=== PATIENT | male | born 1955 | race Caucasian/White ===

== ENCOUNTER 2017-05-21 07:23 | Inpatient (IN) ==
[2017-05-21] MEDS ORDERED: PANTOPRAZOLE 40 MG VIAL IV STA (07:44)
[2017-05-21] MEDS ORDERED: ONDANSETRON 4 MG/2 ML VIAL IV STA (07:44)
[2017-05-21] MEDS ORDERED: SODIUM CHLORIDE 0.9% 1,000 ML IV STA (07:44)
[2017-05-21 08:06] LABS: Basophils # 0.1 10*3/uL (0.0-0.2); Basophils % 0.9 % (0.0-0.8); NRBC # 0.02 10*3/uL; Platelet Count 85 T/CUMM (130-400); Red Cell Distribution Width 14.6 % (9.3-17.3)
[2017-05-21 08:11] LABS: Eosinophils # 0.1 10*3/uL (0.0-0.87); Eosinophils % 1.1 % (0.00-10.9); Hematocrit 23.6 VOL% (42.0-52.0); Hemoglobin 8.1 GM/DL (14.0-18.0); Immature Granulocytes % 0.9 %; Immature Granulocytes Absolute 0.08 #; Lymphocytes # 1.1 10*3/uL (1.4-4.0); Lymphocytes % 11.5 % (21.2-54.2); Mean Corpuscular HGB Conc 34.3 GM/DL (32-36); Mean Corpuscular Hemoglobin 39 PG (27-34); Mean Corpuscular Volume 113.5 FL (87-102); Mean Platelet Volume 11.2 FL (9.6-12.0); Monocytes # 0.6 10*3/uL (0.11-0.8); Monocytes % 6.8 % (1.7-12.7); Neutrophils # 7.4 10*3/uL (1.4-7.4); Neutrophils % 78.8 % (38.7-73.9); Red Blood Count 2.08 MC/CUMM (3.8-5.5); White Blood Count 9.3 T/CUMM (4-12)
[2017-05-21 08:37] LABS: Calcium 8.4 MG/DL (8.5-10.1); Osmolality,Calculated 281.5 MOS/KG (273-304); Potassium 4.1 MMOL/L (3.5-5.1); Total Protein 6.3 G/DL (6.4-8.3)
[2017-05-21 08:53] LABS: INR 1.2; PT Patient Result 12.5 SECS
[2017-05-21] MEDS ORDERED: SODIUM CHLORIDE 0.9% 1,000 ML IV PRN (08:54)
[2017-05-21] MEDS ORDERED: PANTOPRAZOLE 40 MG VIAL IV ONE (09:20)
[2017-05-21] MEDS ORDERED: ONDANSETRON 4 MG/2 ML VIAL ONE (09:20)
[2017-05-21] MEDS ORDERED: ACETAMINOPHEN 325 MG TABLET PO PRN (09:41)
[2017-05-21] MEDS ORDERED: ZALEPLON 5 MG CAPSULE PO PRN (09:41)
[2017-05-21] MEDS ORDERED: ONDANSETRON 4 MG/2 ML VIAL IV PRN (09:41)
[2017-05-21] MEDS: SODIUM CHLORIDE 0.9% 1,000 ML IV SCH ×4 (10:17→23:52)
[2017-05-21] MEDS: methylPREDNISolone SOD SUC 40 MG/1 ML VIAL IV SCH (10:17)
[2017-05-21 10:32] LABS: Magnesium 1.6 MG/DL (1.8-2.4); Thyroid Stimulating Hormone 6.55 uIU/ml (0.358-3.74)
[2017-05-21 10:43] LABS: Hypochromasia 1+; Platelet Estimate Decreased
[2017-05-21 10:45] LABS: Hematocrit 13.8 VOL% (42.0-52.0)
[2017-05-21 10:48] LABS: Hemoglobin 4.7 GM/DL (14.0-18.0)
[2017-05-21 13:30] LABS: % Iron Saturation 26.4 % (18-50)
[2017-05-21] MEDS ORDERED: PROPOFOL 200 MG/20 ML VIAL IV ONE (13:34)
[2017-05-21] MEDS ORDERED: FOLIC ACID 5 MG/1 ML VIAL IV SCH (14:30)
[2017-05-21] MEDS: THIAMINE 200 MG/2 ML VIAL IV SCH (16:44)
[2017-05-21] MEDS: FOLIC ACID INJ 1 MG in SYRINGE 1 EACH IV SCH (17:01)
[2017-05-21] MEDS: PANTOPRAZOLE 40 MG VIAL IV SCH (20:13)
[2017-05-21 21:04] LABS: Hematocrit 28.4 VOL% (42.0-52.0)
[2017-05-21 21:07] LABS: Hemoglobin 9.9 GM/DL (14.0-18.0)
[2017-05-21 22:26] LABS: AFP Tumor 4.2 NG/ML (0-8); Hepatitis A Ab IgM Quant 0.04 Index; Hepatitis A Ab IgM Result Negative (Negative); Hepatitis B Core IgM Quant 0.11 Index; Hepatitis B Core IgM Result Negative (Negative); Hepatitis B Surface Ag Quant < 0.10 Index; Hepatitis B Surface Ag Result Negative (Negative); Hepatitis C Virus Ab Quant 0.08 Index; Hepatitis C Virus Ab Result Negative (Negative)
[2017-05-22 06:19] LABS: Albumin 2.9 G/DL (3.4-5.0); Calcium 8.4 MG/DL (8.5-10.1); Osmolality,Calculated 277.5 MOS/KG (273-304); Potassium 3.9 MMOL/L (3.5-5.1); Total Protein 6.3 G/DL (6.4-8.3)
[2017-05-22 07:28] LABS: Basophils % 0.5 % (0.0-0.8); Eosinophils % 0.3 % (0.00-10.9); Hematocrit 27.9 VOL% (42.0-52.0); Hemoglobin 9.6 GM/DL (14.0-18.0); Immature Granulocytes % 0.8 %; Immature Granulocytes Absolute 0.05 #; Lymphocytes % 14.8 % (21.2-54.2); Mean Corpuscular HGB Conc 34.4 GM/DL (32-36); Mean Corpuscular Hemoglobin 34 PG (27-34); Mean Corpuscular Volume 98.6 FL (87-102); Mean Platelet Volume 9.8 FL (9.6-12.0); Monocytes # 0.6 10*3/uL (0.11-0.8); NRBC # 0.03 10*3/uL; Neutrophils # 4.9 10*3/uL (1.4-7.4); Neutrophils % 74.6 % (38.7-73.9); Platelet Count 50 T/CUMM (130-400); Red Blood Count 2.83 MC/CUMM (3.8-5.5); Red Cell Distribution Width 20.7 % (9.3-17.3); White Blood Count 6.6 T/CUMM (4-12)
[2017-05-22] MEDS ORDERED: INFLUENZA VIRUS VACCINE 0.5 ML SYRINGE IM ONE (09:00)
[2017-05-22] MEDS: PANTOPRAZOLE 40 MG VIAL IV SCH (09:00)
[2017-05-22] MEDS: THIAMINE 200 MG/2 ML VIAL IV SCH (09:06)
[2017-05-22] MEDS: methylPREDNISolone SOD SUC 40 MG/1 ML VIAL IV SCH (09:25)
[2017-05-22 09:30] LABS: Platelet Estimate Decreased
[2017-05-22 09:31] LABS: Anisocytosis Slight; Macrocytosis 2+
[2017-05-22] MEDS: SODIUM CHLORIDE 0.9% 1,000 ML IV SCH (09:34)
[2017-05-22] MEDS: FOLIC ACID INJ 1 MG in SYRINGE 1 EACH IV SCH (10:17)
[2017-05-22] MEDS: POTASSIUM CHLORIDE 10 MEQ TABLET PO SCH (14:53)
[2017-05-22] MEDS: FUROSEMIDE 20 MG/2 ML VIAL IV SCH ×2 (14:54→17:43)
[2017-05-22] MEDS: FAMOTIDINE 20 MG/2 ML VIAL IV SCH (14:54)
[2017-05-23] MEDS: FAMOTIDINE 20 MG/2 ML VIAL IV SCH (01:31)
[2017-05-23 03:25] LABS: Basophils % 0.3 % (0.0-0.8); Eosinophils % 0.9 % (0.00-10.9); Hematocrit 26.4 VOL% (42.0-52.0); Hemoglobin 9.2 GM/DL (14.0-18.0); Immature Granulocytes % 0.3 %; Immature Granulocytes Absolute 0.01 #; Lymphocytes % 29.1 % (21.2-54.2); Mean Corpuscular HGB Conc 34.8 GM/DL (32-36); Mean Corpuscular Hemoglobin 34 PG (27-34); Mean Corpuscular Volume 98.1 FL (87-102); Mean Platelet Volume 10.8 FL (9.6-12.0); Monocytes # 0.4 10*3/uL (0.11-0.8); Monocytes % 11.1 % (1.7-12.7); Neutrophils % 58.3 % (38.7-73.9); Red Blood Count 2.69 MC/CUMM (3.8-5.5); White Blood Count 3.5 T/CUMM (4-12)
[2017-05-23 03:29] LABS: Platelet Count 51 T/CUMM (130-400)
[2017-05-23] MEDS ORDERED: FUROSEMIDE 20 MG/2 ML VIAL IV SCH (08:00)
[2017-05-23] MEDS: methylPREDNISolone SOD SUC 40 MG/1 ML VIAL IV SCH ×2 (08:27→10:03)
[2017-05-23] MEDS ORDERED: FUROSEMIDE 20 MG/2 ML VIAL IV PRN (08:27)
[2017-05-23] MEDS: POTASSIUM CHLORIDE 10 MEQ TABLET PO SCH (08:27)
[2017-05-23] MEDS ORDERED: SODIUM CHLORIDE 0.9% 1,000 ML IV PRN ×2 (08:27→08:43)
[2017-05-23] MEDS: THIAMINE 200 MG/2 ML VIAL IV SCH (08:28)
[2017-05-23] MEDS: FOLIC ACID INJ 1 MG in SYRINGE 1 EACH IV SCH (08:28)
[2017-05-23] MEDS: PANTOPRAZOLE 40 MG TABLET PO SCH (08:47)
[2017-05-23] MEDS: PROPRANOLOL 10 MG TABLET PO SCH ×3 (10:56→20:39)
[2017-05-24 06:46] LABS: Basophils # 0.1 10*3/uL (0.0-0.2); Basophils % 1.1 % (0.0-0.8); Eosinophils # 0.2 10*3/uL (0.0-0.87); Eosinophils % 3.2 % (0.00-10.9); Hematocrit 34.5 VOL% (42.0-52.0); Hemoglobin 11.7 GM/DL (14.0-18.0); Immature Granulocytes % 0.3 %; Immature Granulocytes Absolute 0.02 #; Lymphocytes # 2.1 10*3/uL (1.4-4.0); Lymphocytes % 32.5 % (21.2-54.2); Mean Corpuscular HGB Conc 33.9 GM/DL (32-36); Mean Corpuscular Hemoglobin 33 PG (27-34); Mean Corpuscular Volume 97.7 FL (87-102); Monocytes # 0.5 10*3/uL (0.11-0.8); Monocytes % 7.3 % (1.7-12.7); Neutrophils # 3.5 10*3/uL (1.4-7.4); Neutrophils % 55.6 % (38.7-73.9); Platelet Count 84 T/CUMM (130-400); Red Blood Count 3.53 MC/CUMM (3.8-5.5); White Blood Count 6.3 T/CUMM (4-12)
[2017-05-24 07:06] LABS: Hypochromasia 1+; Macrocytosis 1+; Platelet Estimate Decreased
[2017-05-24 07:43] LABS: INR 1.1; PT Patient Result 11.1 SECS
[2017-05-24] MEDS ORDERED: DIAZEPAM 5 MG TABLET PO ONE (08:47)
[2017-05-24] MEDS: FUROSEMIDE 20 MG/2 ML VIAL IV SCH (09:16)
[2017-05-24] MEDS: FOLIC ACID 1 MG TABLET PO SCH ×2 (10:56→17:07)
[2017-05-24] MEDS: THIAMINE 100 MG TABLET PO SCH ×2 (10:56→17:06)
[2017-05-24] MEDS: POTASSIUM CHLORIDE 10 MEQ TABLET PO SCH ×2 (10:56→17:06)
[2017-05-24] MEDS: predniSONE 10 MG TABLET PO SCH ×2 (10:56→17:06)
[2017-05-24] MEDS: PANTOPRAZOLE 40 MG TABLET PO SCH ×2 (10:56→17:06)
[2017-05-24] MEDS: PROPRANOLOL 10 MG TABLET PO SCH ×3 (12:17→21:39)
[2017-05-25 06:57] LABS: Basophils # 0.1 10*3/uL (0.0-0.2); Basophils % 0.6 % (0.0-0.8); Eosinophils # 0.1 10*3/uL (0.0-0.87); Eosinophils % 1.1 % (0.00-10.9); Hematocrit 33.7 VOL% (42.0-52.0); Hemoglobin 11.6 GM/DL (14.0-18.0); Immature Granulocytes % 0.5 %; Immature Granulocytes Absolute 0.06 #; Lymphocytes # 1.4 10*3/uL (1.4-4.0); Lymphocytes % 12.6 % (21.2-54.2); Mean Corpuscular HGB Conc 34.4 GM/DL (32-36); Mean Corpuscular Hemoglobin 34 PG (27-34); Mean Corpuscular Volume 97.7 FL (87-102); Mean Platelet Volume 11.1 FL (9.6-12.0); Monocytes # 0.8 10*3/uL (0.11-0.8); Monocytes % 7.1 % (1.7-12.7); Neutrophils # 8.6 10*3/uL (1.4-7.4); Neutrophils % 78.1 % (38.7-73.9); Red Blood Count 3.45 MC/CUMM (3.8-5.5); Red Cell Distribution Width 19.4 % (9.3-17.3)
[2017-05-25 07:00] LABS: Platelet Count 95 T/CUMM (130-400)
[2017-05-25 07:38] LABS: Macrocytosis 2+; Platelet Estimate Decreased
[2017-05-25] MEDS: FUROSEMIDE 20 MG/2 ML VIAL IV SCH (08:44)
[2017-05-25] MEDS: PROPRANOLOL 10 MG TABLET PO SCH (08:45)
[2017-05-25] MEDS: PANTOPRAZOLE 40 MG TABLET PO SCH (08:45)
[2017-05-25] MEDS: THIAMINE 100 MG TABLET PO SCH (08:45)
[2017-05-25] MEDS: POTASSIUM CHLORIDE 10 MEQ TABLET PO SCH (08:45)
[2017-05-25] MEDS: predniSONE 10 MG TABLET PO SCH (08:45)
[2017-05-25] MEDS: FOLIC ACID 1 MG TABLET PO SCH (08:45)
[2017-05-25 09:15] VITALS: BP 130/81
== END 2017-05-25 12:24 | disposition home or self-care (01) | DRG 432 ==
LOC: N.ED 07:23 → N.EDINP 09:04 → SUATTDRO 09:04 → N.CC 09:49 → N.5E 05-22 11:00
PROVIDERS: ADMIT Internal Medicine; ATTEND Internal Medicine
PROC: EGDWEBL (ICD-10-PCS; 2017-05-21 12:00)

== ENCOUNTER 2017-10-11 20:03 | Inpatient (IN) ==
[2017-10-11 20:53] LABS: Basophils # 0.1 10*3/uL (0.0-0.2); Basophils % 0.5 % (0.0-0.8); Eosinophils # 0.6 10*3/uL (0.0-0.87); Eosinophils % 6.7 % (0.00-10.9); Hemoglobin 6.6 GM/DL (14.0-18.0); Immature Granulocytes % 0.6 %; Immature Granulocytes Absolute 0.06 #; Lymphocytes # 1.3 10*3/uL (1.4-4.0); Lymphocytes % 14.4 % (21.2-54.2); Mean Corpuscular HGB Conc 34.7 GM/DL (32-36); Mean Corpuscular Hemoglobin 39 PG (27-34); Mean Corpuscular Volume 111.8 FL (87-102); Mean Platelet Volume 11.8 FL (9.6-12.0); Monocytes # 0.9 10*3/uL (0.11-0.8); Monocytes % 9.7 % (1.7-12.7); Neutrophils # 6.3 10*3/uL (1.4-7.4); Neutrophils % 68.1 % (38.7-73.9); Platelet Count 91 T/CUMM (130-400); Red Cell Distribution Width 16.5 % (9.3-17.3); White Blood Count 9.3 T/CUMM (4-12)
[2017-10-11] MEDS ORDERED: OCTREOTIDE 100 MCG/ML SYRINGE IV STA (21:01)
[2017-10-11] MEDS ORDERED: PANTOPRAZOLE 40 MG VIAL IV STA (21:01)
[2017-10-11] MEDS ORDERED: SODIUM CHLORIDE 0.9% 500 ML IV STA (21:01)
[2017-10-11] MEDS ORDERED: ONDANSETRON 4 MG/2 ML VIAL IV STA (21:01)
[2017-10-11 21:13] LABS: Partial Thromboplastin Time 45.7 SECS (0-40)
[2017-10-11 21:16] LABS: INR 8.8
[2017-10-11 21:23] LABS: Anisocytosis 1+; Band Neutrophils 6 % (0-10); Eosinophils 5 % (0-10); Hypochromasia 1+; Lymphocytes 13 % (20-55); Platelet Estimate Decreased; Segmented Neutrophils 71 % (50-85); Tear Drop Cells Few; Total Cells Counted 100
[2017-10-11 21:25] LABS: Albumin 2.7 G/DL (3.4-5.0); Bilirubin,Total 0.6 MG/DL (0.2-1.0); Calcium 7.8 MG/DL (8.5-10.1); Osmolality,Calculated 291.1 MOS/KG (273-304); Potassium 3.9 MMOL/L (3.5-5.1)
[2017-10-11] MEDS ORDERED: ONDANSETRON 4 MG/2 ML VIAL ONE (21:25)
[2017-10-11] MEDS ORDERED: PANTOPRAZOLE 40 MG VIAL IV ONE (21:25)
[2017-10-11] MEDS ORDERED: OCTREOTIDE 100 MCG/ML SYRINGE ONE (21:26)
[2017-10-11 21:54] LABS: Ammonia 49 UMOL/L (11-32)
[2017-10-11] MEDS ORDERED: PHYTONADIONE 10 MG/1 ML AMP SUBCUT STA (22:13)
[2017-10-11] MEDS ORDERED: SODIUM CHLORIDE 0.9% 1,000 ML IV PRN (22:14)
[2017-10-11 22:19] LABS: Troponin I Only < 0.015 NG/ML (0.00-0.045)
[2017-10-11] MEDS ORDERED: PHYTONADIONE 10 MG/1 ML AMP ONE (22:23)
[2017-10-11] MEDS ORDERED: PHYTONADIONE 10 MG/1 ML AMP IV STA (23:50)
[2017-10-12] MEDS ORDERED: ONDANSETRON 4 MG/2 ML VIAL IV PRN (00:32)
[2017-10-12] MEDS: OCTREOTIDE 500 MCG in SODIUM CHLORIDE 0.9% 100 ML IV SCH ×2 (01:19→12:59)
[2017-10-12] MEDS: PANTOPRAZOLE INJ 200 MG in SODIUM CHLORIDE 0.9% 250 ML IV SCH (04:15)
[2017-10-12 05:32] LABS: Potassium 4.2 MMOL/L (3.5-5.1)
[2017-10-12 05:34] LABS: Eosinophils # 0.4 10*3/uL (0.0-0.87); Eosinophils % 8.7 % (0.00-10.9); Hematocrit 22.7 VOL% (42.0-52.0); Immature Granulocytes % 2.2 %; Immature Granulocytes Absolute 0.09 #; Lymphocytes # 1.1 10*3/uL (1.4-4.0); Lymphocytes % 26.2 % (21.2-54.2); Mean Corpuscular HGB Conc 35.2 GM/DL (32-36); Mean Corpuscular Hemoglobin 36 PG (27-34); Mean Corpuscular Volume 102.7 FL (87-102); Mean Platelet Volume 12.3 FL (9.6-12.0); Monocytes # 0.5 10*3/uL (0.11-0.8); Monocytes % 12.6 % (1.7-12.7); Neutrophils % 49.3 % (38.7-73.9); Platelet Count 64 T/CUMM (130-400); Red Blood Count 2.21 MC/CUMM (3.8-5.5); Red Cell Distribution Width 18.8 % (9.3-17.3); White Blood Count 4.1 T/CUMM (4-12)
[2017-10-12 05:56] LABS: Giant Platelets Few; Hypochromasia 1+; Macrocytosis Slight; Ovalocytes Slight; Platelet Estimate Decreased
[2017-10-12 08:47] LABS: INR 2.3
[2017-10-12 08:53] LABS: PT Patient Result 23.9 SECS
[2017-10-12] MEDS ORDERED: SODIUM CHLORIDE 0.9% 1,000 ML IV PRN (10:36)
[2017-10-12 19:56] LABS: Hematocrit 29.9 VOL% (42.0-52.0); Hemoglobin 10.7 GM/DL (14.0-18.0)
[2017-10-13] MEDS: OCTREOTIDE 500 MCG in SODIUM CHLORIDE 0.9% 100 ML IV SCH (00:50)
[2017-10-13 04:12] LABS: Basophils # 0.1 10*3/uL (0.0-0.2); Basophils % 1.3 % (0.0-0.8); Eosinophils # 0.5 10*3/uL (0.0-0.87); Eosinophils % 11.6 % (0.00-10.9); Hematocrit 28.4 VOL% (42.0-52.0); Hemoglobin 9.9 GM/DL (14.0-18.0); Immature Granulocytes % 0.4 %; Immature Granulocytes Absolute 0.02 #; Lymphocytes % 20.9 % (21.2-54.2); Mean Corpuscular HGB Conc 34.9 GM/DL (32-36); Mean Corpuscular Hemoglobin 35 PG (27-34); Mean Corpuscular Volume 100.4 FL (87-102); Mean Platelet Volume 11.4 FL (9.6-12.0); Monocytes # 0.5 10*3/uL (0.11-0.8); Monocytes % 10.5 % (1.7-12.7); Neutrophils # 2.6 10*3/uL (1.4-7.4); Neutrophils % 55.3 % (38.7-73.9); Platelet Count 57 T/CUMM (130-400); Red Blood Count 2.83 MC/CUMM (3.8-5.5); Red Cell Distribution Width 21.7 % (9.3-17.3); White Blood Count 4.7 T/CUMM (4-12)
[2017-10-13 04:16] LABS: INR 1.5; PT Patient Result 15.3 SECS
[2017-10-13 04:36] LABS: Bilirubin,Total 1.9 MG/DL (0.2-1.0); Calcium 8.5 MG/DL (8.5-10.1); Potassium 3.9 MMOL/L (3.5-5.1); Total Protein 6.5 G/DL (6.4-8.3)
[2017-10-13 04:42] LABS: Band Neutrophils 5 % (0-10); Eosinophils 14 % (0-10); Lymphocytes 20 % (20-55); Segmented Neutrophils 54 % (50-85); Total Cells Counted 100
[2017-10-13 04:43] LABS: Hypochromasia 1+; Macrocytosis 1+; Ovalocytes Slight
[2017-10-13 04:44] LABS: Platelet Estimate Decreased
[2017-10-13] MEDS: PANTOPRAZOLE INJ 200 MG in SODIUM CHLORIDE 0.9% 250 ML IV SCH (05:20)
[2017-10-13] MEDS ORDERED: PANTOPRAZOLE 40 MG TABLET PO SCH (09:00)
[2017-10-13] MEDS ORDERED: WARFARIN 2.5 MG TABLET PO ONE (09:47)
[2017-10-13] MEDS ORDERED: PROPRANOLOL 10 MG TABLET PO SCH (15:00)
[2017-10-13 15:05] VITALS: BP 127/73
[2017-10-13] MEDS ORDERED: HYDROXYCHLOROQUINE 200 MG TABLET PO SCH (21:00)
[2017-10-14] MEDS ORDERED: predniSONE 5 MG TABLET PO SCH (09:00)
[2017-10-14] MEDS ORDERED: PANTOPRAZOLE 40 MG TABLET PO SCH (09:00)
[2017-10-14] MEDS ORDERED: BENAZEPRIL 10 MG TABLET PO SCH (09:00)
[2017-10-14] MEDS ORDERED: MULTIVITAMIN (CENTRUM) TABLET PO SCH (09:00)
== END 2017-10-13 15:50 | disposition home or self-care (01) | DRG 813 ==
LOC: N.ED 20:03 → N.EDINP 23:38 → N.CC 10-12 00:08
PROVIDERS: ADMIT Family Medicine; ATTEND Family Medicine

== ENCOUNTER 2017-11-21 17:30 | Inpatient (IN) ==
[2017-11-21] MEDS ORDERED: ONDANSETRON 4 MG/2 ML VIAL IV STA (18:09)
[2017-11-21] MEDS ORDERED: SODIUM CHLORIDE 0.9% 1,000 ML IV STA (18:09)
[2017-11-21 18:29] LABS: Basophils # 0.1 10*3/uL (0.0-0.2); Basophils % 0.8 % (0.0-0.8); Eosinophils # 0.6 10*3/uL (0.0-0.87); Hematocrit 22.5 VOL% (42.0-52.0); Hemoglobin 7.5 GM/DL (14.0-18.0); Immature Granulocytes % 1.2 %; Immature Granulocytes Absolute 0.19 #; Lymphocytes # 1.8 10*3/uL (1.4-4.0); Lymphocytes % 11.3 % (21.2-54.2); Mean Corpuscular HGB Conc 33.3 GM/DL (32-36); Mean Corpuscular Hemoglobin 35 PG (27-34); Mean Corpuscular Volume 104.2 FL (87-102); Monocytes # 1.1 10*3/uL (0.11-0.8); Monocytes % 6.7 % (1.7-12.7); NRBC # 0.03 10*3/uL; Neutrophils # 11.9 10*3/uL (1.4-7.4); Platelet Count 189 T/CUMM (130-400); Red Blood Count 2.16 MC/CUMM (3.8-5.5); Red Cell Distribution Width 19.3 % (9.3-17.3); White Blood Count 15.6 T/CUMM (4-12)
[2017-11-21] MEDS ORDERED: SODIUM CHLORIDE 0.9% 1,000 ML IV PRN ×3 (18:33→22:28)
[2017-11-21 18:39] LABS: Partial Thromboplastin Time 28.9 SECS (0-40)
[2017-11-21 18:44] LABS: INR 2.5
[2017-11-21 18:52] LABS: PT Patient Result 25.3 SECS
[2017-11-21 18:54] LABS: Ammonia 58 UMOL/L (11-32)
[2017-11-21 19:01] LABS: Alanine Aminotransferase 19 U/L (16-61); Alkaline Phosphatase 74 U/L (45-117); Aspartate Amino Transferase 13 U/L (0-37); Blood Urea Nitrogen 39 MG/DL (7-18); Calcium 8.2 MG/DL (8.5-10.1); Glucose 164 MG/DL (74-106); Osmolality,Calculated 291.4 MOS/KG (273-304); Potassium 4.7 MMOL/L (3.5-5.1); Sodium 140 MMOL/L (136-145); Total Protein 6.6 G/DL (6.4-8.3); Troponin I Only < 0.015 NG/ML (0.00-0.045)
[2017-11-21] MEDS ORDERED: ONDANSETRON 4 MG/2 ML VIAL IV PRN (22:28)
[2017-11-21] MEDS ORDERED: PROMETHAZINE 25 MG/1 ML VIAL IM PRN (22:28)
[2017-11-21] MEDS ORDERED: MORPHINE 4 MG/1 ML VIAL IV PRN (22:28)
[2017-11-21] MEDS ORDERED: OCTREOTIDE 100 MCG/ML SYRINGE IV ONE (23:00)
[2017-11-21] MEDS ORDERED: PHYTONADIONE 10 MG/1 ML AMP IV ONE (23:00)
[2017-11-21] MEDS: PANTOPRAZOLE 40 MG VIAL IV SCH (23:04)
[2017-11-21] MEDS: SODIUM CHLORIDE 0.9% 1,000 ML IV SCH (23:05)
[2017-11-22] MEDS: OCTREOTIDE 500 MCG in SODIUM CHLORIDE 0.9% 100 ML IV SCH ×3 (00:05→20:21)
[2017-11-22 06:13] LABS: Hematocrit 27.3 VOL% (42.0-52.0); Hemoglobin 9.4 GM/DL (14.0-18.0)
[2017-11-22] MEDS: SODIUM CHLORIDE 0.9% 1,000 ML IV SCH ×2 (09:14→17:32)
[2017-11-22] MEDS: PANTOPRAZOLE 40 MG VIAL IV SCH ×2 (09:15→20:21)
[2017-11-22 09:55] LABS: INR 1.5; PT Patient Result 15.2 SECS
[2017-11-22] MEDS ORDERED: PHYTONADIONE 5 MG/5 ML ORAL.SYR PO ONE (09:56)
[2017-11-22] MEDS ORDERED: SODIUM CHLORIDE 0.9% 1,000 ML IV PRN (09:56)
[2017-11-22] MEDS: methylPREDNISolone SOD SUC 40 MG/1 ML VIAL IV SCH ×2 (09:56→21:30)
[2017-11-22 12:00] LABS: Hemoglobin 9.2 GM/DL (14.0-18.0)
[2017-11-22 17:56] LABS: Hematocrit 24.7 VOL% (42.0-52.0); Hemoglobin 8.5 GM/DL (14.0-18.0)
[2017-11-23] MEDS: SODIUM CHLORIDE 0.9% 1,000 ML IV SCH ×2 (02:47→21:50)
[2017-11-23 03:22] LABS: Hematocrit 24.6 VOL% (42.0-52.0); Hemoglobin 8.5 GM/DL (14.0-18.0)
[2017-11-23 03:25] LABS: Basophils % 0.3 % (0.0-0.8); Hematocrit 24.9 VOL% (42.0-52.0); Hemoglobin 8.5 GM/DL (14.0-18.0); Immature Granulocytes % 2.1 %; Immature Granulocytes Absolute 0.07 #; Lymphocytes # 0.4 10*3/uL (1.4-4.0); Lymphocytes % 12.6 % (21.2-54.2); Mean Corpuscular HGB Conc 34.1 GM/DL (32-36); Mean Corpuscular Hemoglobin 33 PG (27-34); Mean Corpuscular Volume 97.3 FL (87-102); Mean Platelet Volume 10.7 FL (9.6-12.0); Monocytes # 0.1 10*3/uL (0.11-0.8); Monocytes % 4.1 % (1.7-12.7); Neutrophils # 2.8 10*3/uL (1.4-7.4); Neutrophils % 80.9 % (38.7-73.9); Platelet Count 75 T/CUMM (130-400); Red Blood Count 2.56 MC/CUMM (3.8-5.5); White Blood Count 3.4 T/CUMM (4-12)
[2017-11-23 03:30] LABS: INR 1.1
[2017-11-23 03:51] LABS: Calcium 8.1 MG/DL (8.5-10.1); Osmolality,Calculated 290.1 MOS/KG (273-304); Potassium 4.3 MMOL/L (3.5-5.1)
[2017-11-23 03:55] LABS: Macrocytosis 2+; Platelet Estimate Decreased
[2017-11-23] MEDS: OCTREOTIDE 500 MCG in SODIUM CHLORIDE 0.9% 100 ML IV SCH ×2 (07:40→17:13)
[2017-11-23 07:58] LABS: Hematocrit 27.7 VOL% (42.0-52.0); Hemoglobin 9.2 GM/DL (14.0-18.0)
[2017-11-23] MEDS: PANTOPRAZOLE 40 MG VIAL IV SCH ×2 (11:17→22:06)
[2017-11-23] MEDS: methylPREDNISolone SOD SUC 40 MG/1 ML VIAL IV SCH ×2 (11:19→22:09)
[2017-11-23] MEDS ORDERED: LIDOCAINE 1% 5 ML VIAL ONE (12:56)
[2017-11-23] MEDS ORDERED: PROPOFOL 200 MG/20 ML VIAL IV ONE (12:56)
[2017-11-24] MEDS: OCTREOTIDE 500 MCG in SODIUM CHLORIDE 0.9% 100 ML IV SCH ×2 (05:57→16:30)
[2017-11-24 06:31] LABS: Basophils % 0.3 % (0.0-0.8); Eosinophils % 0.3 % (0.00-10.9); Hematocrit 24.4 VOL% (42.0-52.0); Hemoglobin 8.4 GM/DL (14.0-18.0); Immature Granulocytes % 1.6 %; Immature Granulocytes Absolute 0.06 #; Lymphocytes # 0.5 10*3/uL (1.4-4.0); Mean Corpuscular HGB Conc 34.4 GM/DL (32-36); Mean Corpuscular Hemoglobin 33 PG (27-34); Mean Corpuscular Volume 96.1 FL (87-102); Mean Platelet Volume 10.6 FL (9.6-12.0); Monocytes # 0.2 10*3/uL (0.11-0.8); Neutrophils # 3.1 10*3/uL (1.4-7.4); Neutrophils % 81.8 % (38.7-73.9); Platelet Count 76 T/CUMM (130-400); Red Blood Count 2.54 MC/CUMM (3.8-5.5); Red Cell Distribution Width 19.3 % (9.3-17.3); White Blood Count 3.8 T/CUMM (4-12)
[2017-11-24 07:08] LABS: Band Neutrophils 1 % (0-10); Eosinophils 1 % (0-10); Hypochromasia 1+; Lymphocytes 10 % (20-55); Ovalocytes Slight; Platelet Estimate Decreased; Segmented Neutrophils 84 % (50-85); Total Cells Counted 100
[2017-11-24] MEDS: SODIUM CHLORIDE 0.9% 1,000 ML IV SCH ×4 (07:56→16:06)
[2017-11-24 08:07] LABS: INR 1.2; PT Patient Result 12.1 SECS
[2017-11-24] MEDS: PANTOPRAZOLE 40 MG VIAL IV SCH ×2 (09:07→21:46)
[2017-11-24] MEDS: methylPREDNISolone SOD SUC 40 MG/1 ML VIAL IV SCH ×2 (09:11→21:49)
[2017-11-24] MEDS ORDERED: FUROSEMIDE 20 MG/2 ML VIAL IV PRN (21:32)
[2017-11-24] MEDS ORDERED: SODIUM CHLORIDE 0.9% 1,000 ML IV PRN (21:32)
[2017-11-25] MEDS ORDERED: FUROSEMIDE 20 MG/2 ML VIAL IV PRN (04:15)
[2017-11-25] MEDS ORDERED: PANTOPRAZOLE 40 MG TABLET PO SCH (07:00)
[2017-11-25 07:02] LABS: INR 1.2; PT Patient Result 12.7 SECS
[2017-11-25 07:15] LABS: Albumin 3.1 G/DL (3.4-5.0); Bilirubin,Total 1.5 MG/DL (0.2-1.0); Calcium 8.6 MG/DL (8.5-10.1); Osmolality,Calculated 277.7 MOS/KG (273-304); Potassium 3.7 MMOL/L (3.5-5.1); Total Protein 7.1 G/DL (6.4-8.3)
[2017-11-25] MEDS ORDERED: PROPRANOLOL 20 MG TABLET PO SCH (09:00)
[2017-11-25] MEDS: methylPREDNISolone SOD SUC 40 MG/1 ML VIAL IV SCH (09:32)
[2017-11-25] MEDS: SODIUM CHLORIDE 0.9% 1,000 ML IV SCH ×2 (09:32→10:44)
[2017-11-25 09:57] LABS: Basophils % 0.2 % (0.0-0.8); Hematocrit 31.5 VOL% (42.0-52.0); Immature Granulocytes % 1.3 %; Immature Granulocytes Absolute 0.08 #; Lymphocytes % 15.8 % (21.2-54.2); Mean Corpuscular Hemoglobin 32 PG (27-34); Mean Corpuscular Volume 92.9 FL (87-102); Mean Platelet Volume 10.9 FL (9.6-12.0); Monocytes # 0.7 10*3/uL (0.11-0.8); Monocytes % 11.8 % (1.7-12.7); Neutrophils # 4.3 10*3/uL (1.4-7.4); Neutrophils % 70.9 % (38.7-73.9); Red Cell Distribution Width 18.7 % (9.3-17.3)
[2017-11-25 09:59] LABS: Hemoglobin 10.7 GM/DL (14.0-18.0); Red Blood Count 3.39 MC/CUMM (3.8-5.5)
[2017-11-25 10:00] LABS: Platelet Count 77 T/CUMM (130-400)
[2017-11-25 10:15] LABS: Hypochromasia 1+; Ovalocytes Slight; Platelet Estimate Decreased
[2017-11-25 10:16] LABS: Macrocytosis Slight
[2017-11-25 12:43] VITALS: BP 132/79
== END 2017-11-25 12:32 | disposition home or self-care (01) | DRG 368 ==
LOC: N.ED 17:30 → SUATTDRO 20:12 → N.EDINP 20:12 → N.3E 22:06
PROVIDERS: ADMIT Internal Medicine Infectious Disease; ATTEND Internal Medicine Cardiovascular Disease
PROC: EGDWEBL (ICD-10-PCS; 2017-11-23 08:00)

== ENCOUNTER 2017-11-28 06:38 | Inpatient (IN) ==
[2017-11-28] MEDS ORDERED: PANTOPRAZOLE 40 MG VIAL IV STA (07:28)
[2017-11-28] MEDS ORDERED: ONDANSETRON 4 MG/2 ML VIAL IV STA (07:28)
[2017-11-28] MEDS ORDERED: SODIUM CHLORIDE 0.9% 1,000 ML IV STA (07:28)
[2017-11-28 07:39] LABS: Basophils # 0.1 10*3/uL (0.0-0.2); Basophils % 0.5 % (0.0-0.8); Eosinophils % 0.2 % (0.00-10.9); Hemoglobin 10.9 GM/DL (14.0-18.0); Immature Granulocytes % 0.8 %; Lymphocytes # 0.7 10*3/uL (1.4-4.0); Lymphocytes % 5.4 % (21.2-54.2); Mean Corpuscular HGB Conc 34.1 GM/DL (32-36); Mean Corpuscular Hemoglobin 32 PG (27-34); Mean Corpuscular Volume 94.7 FL (87-102); Mean Platelet Volume 11.9 FL (9.6-12.0); Monocytes # 1.3 10*3/uL (0.11-0.8); Monocytes % 10.4 % (1.7-12.7); Neutrophils # 10.5 10*3/uL (1.4-7.4); Neutrophils % 82.7 % (38.7-73.9); Red Blood Count 3.38 MC/CUMM (3.8-5.5); Red Cell Distribution Width 18.6 % (9.3-17.3); White Blood Count 12.7 T/CUMM (4-12)
[2017-11-28 07:40] LABS: Platelet Count 57 T/CUMM (130-400)
[2017-11-28 07:43] LABS: INR 1.4; PT Patient Result 14.2 SECS; Partial Thromboplastin Time 29.8 SECS (0-40)
[2017-11-28 07:50] LABS: Albumin 3.2 G/DL (3.4-5.0); Bilirubin,Total 2.5 MG/DL (0.2-1.0); Calcium 8.1 MG/DL (8.5-10.1); Osmolality,Calculated 269.2 MOS/KG (273-304); Potassium 3.5 MMOL/L (3.5-5.1); Total Protein 6.8 G/DL (6.4-8.3)
[2017-11-28 07:54] LABS: Troponin I Only 0.164 NG/ML (0.00-0.045)
[2017-11-28] MEDS ORDERED: SODIUM CHLORIDE 0.9% 500 ML IV STA (09:09)
[2017-11-28] MEDS ORDERED: cefTRIAXone 1,000 MG in SODIUM CHLORIDE 0.9% 100 ML IV STA (09:11)
[2017-11-28] MEDS ORDERED: ENOXAPARIN 80 MG/0.8 ML SYRINGE SUBCUT STA (09:16)
[2017-11-28] MEDS ORDERED: ASPIRIN 325 MG TABLET PO STA (09:16)
[2017-11-28] MEDS ORDERED: cefTRIAXone 1,000 MG VIAL ONE (09:21)
[2017-11-28 09:23] LABS: Hypochromasia 2+
[2017-11-28] MEDS ORDERED: cefTRIAXone 1,000 MG in SYRINGE 1 EACH IV STA (09:23)
[2017-11-28] MEDS ORDERED: ACETAMINOPHEN 500 MG TABLET PO STA (09:57)
[2017-11-28] MEDS ORDERED: ACETAMINOPHEN 500 MG TABLET ONE (09:58)
[2017-11-28] MEDS ORDERED: SODIUM CHLORIDE 0.9% 1,000 ML IV SCH (11:30)
[2017-11-28 12:13] LABS: Lactic Acid 2.2 MMOL/L (0.4-2.0)
[2017-11-28] MEDS: OCTREOTIDE 500 MCG in SODIUM CHLORIDE 0.9% 100 ML IV SCH (13:11)
[2017-11-28 15:35] LABS: Hematocrit 26.2 VOL% (42.0-52.0); Hemoglobin 8.8 GM/DL (14.0-18.0)
[2017-11-28] MEDS ORDERED: SODIUM CHLORIDE 0.9% 1,000 ML IV PRN ×2 (15:41→15:44)
[2017-11-28] MEDS: ACETAMINOPHEN 325 MG TABLET PO PRN (18:09)
[2017-11-28] MEDS: ALBUTEROL/IPRATROPIUM 3 ML NEB RESP TX SCH ×2 (20:08)
[2017-11-28 20:52] LABS: Calcium 7.7 MG/DL (8.5-10.1); Potassium 3.9 MMOL/L (3.5-5.1)
[2017-11-28] MEDS: LEVOFLOXACIN INJ 750 MG in PREMIX 1 EACH IV SCH (21:46)
[2017-11-28] MEDS: HYDROXYCHLOROQUINE 200 MG TABLET PO SCH (21:49)
[2017-11-28] MEDS: PANTOPRAZOLE 40 MG VIAL IV SCH (21:49)
[2017-11-28] MEDS: PIPERACILLIN/TAZOBACTAM 3,375 MG in SODIUM CHLORIDE 0.9% 100 ML IV SCH (22:37)
[2017-11-28 23:27] LABS: Hematocrit 27.7 VOL% (42.0-52.0); Hemoglobin 9.4 GM/DL (14.0-18.0)
[2017-11-28] MEDS: MORPHINE 4 MG/1 ML VIAL IV PRN (23:56)
[2017-11-29] MEDS: ALBUTEROL/IPRATROPIUM 3 ML NEB RESP TX SCH ×3 (00:07→07:24)
[2017-11-29] MEDS: OCTREOTIDE 500 MCG in SODIUM CHLORIDE 0.9% 100 ML IV SCH ×3 (01:18→22:44)
[2017-11-29] MEDS ORDERED: ONDANSETRON 4 MG/2 ML VIAL ONE (03:16)
[2017-11-29] MEDS ORDERED: ONDANSETRON 4 MG/2 ML VIAL IV PRN (03:20)
[2017-11-29 03:25] LABS: ABG Base Excess -1.7 MMOL/L (-2.5-2.5); ABG HCO3 22.9 MMOL/L (20-26); ABG Oxygen Saturation 96.9 % (95-100); ABG PCO2 41.9 MM HG (35-48); ABG PO2 89.4 MM HG (80-95); ABG TCO2 21.5 MMOL/L (23-27)
[2017-11-29] MEDS ORDERED: FUROSEMIDE 40 MG/4 ML VIAL ONE (04:45)
[2017-11-29 04:49] LABS: Basophils # 0.1 10*3/uL (0.0-0.2); Basophils % 0.5 % (0.0-0.8); Eosinophils % 0.1 % (0.00-10.9); Hematocrit 30.1 VOL% (42.0-52.0); Hemoglobin 10.4 GM/DL (14.0-18.0); Immature Granulocytes % 1.4 %; Lymphocytes % 4.4 % (21.2-54.2); Mean Corpuscular HGB Conc 34.6 GM/DL (32-36); Mean Corpuscular Hemoglobin 32 PG (27-34); Mean Corpuscular Volume 92.3 FL (87-102); Mean Platelet Volume 12.1 FL (9.6-12.0); Monocytes # 2.8 10*3/uL (0.11-0.8); Monocytes % 12.4 % (1.7-12.7); NRBC # 0.03 10*3/uL; Neutrophils % 81.2 % (38.7-73.9); Red Blood Count 3.26 MC/CUMM (3.8-5.5); Red Cell Distribution Width 19.9 % (9.3-17.3); White Blood Count 22.1 T/CUMM (4-12)
[2017-11-29 04:53] LABS: Platelet Count 62 T/CUMM (130-400)
[2017-11-29] MEDS ORDERED: FUROSEMIDE 40 MG/4 ML VIAL IV ONE ×2 (05:00→10:19)
[2017-11-29] MEDS: LEVALBUTEROL 1.25 MG/3 ML NEB RESP TX SCH ×4 (05:01→19:22)
[2017-11-29 05:06] LABS: Amorphous Crystals,Urine Occasional /HPF (Few); Apearance,Urine CLEAR (Clear); Bacteria,Urine Occasional /HPF (Few); Bilirubin,Urine Negative (Negative); Blood, Urine Moderate mg/dL (Negative); Glucose,Urine (UA) Negative (Negative); Ketones,Urine 20 mg/dL (Negative); Mucus,Urine Occasional /LPF (Occasional); Nitrite,Urine Negative (Negative); Protein,Urine 30 MG/DL; RBC,Urine 13 /HPF (0-4); Squamous Epithelial Cell,Urine Occasional /HPF (0-10); Urine Color Yellow (Yellow); Urine Specific Gravity 1.026 (1.001-1.035); Urine Urobilinogen < 2.0 EU/DL (0.2-1.0); WBC,Urine 2 /HPF (0-6)
[2017-11-29] MEDS ORDERED: PROMETHAZINE 25 MG/1 ML VIAL IM PRN (05:06)
[2017-11-29 05:24] LABS: Hypochromasia 1+; Microcytosis 1+
[2017-11-29 05:25] LABS: Platelet Estimate Decreased
[2017-11-29 05:26] LABS: Troponin I Only 0.063 NG/ML (0.00-0.045)
[2017-11-29 05:35] LABS: Calcium 7.9 MG/DL (8.5-10.1); Potassium 4.2 MMOL/L (3.5-5.1)
[2017-11-29] MEDS: PIPERACILLIN/TAZOBACTAM 3,375 MG in SODIUM CHLORIDE 0.9% 100 ML IV SCH ×3 (05:59→22:16)
[2017-11-29 08:41] LABS: Hematocrit 29.8 VOL% (42.0-52.0); Hemoglobin 10.2 GM/DL (14.0-18.0)
[2017-11-29] MEDS: PANTOPRAZOLE 40 MG VIAL IV SCH ×2 (10:31→22:10)
[2017-11-29] MEDS: HYDROXYCHLOROQUINE 200 MG TABLET PO SCH ×2 (10:32→20:14)
[2017-11-29] MEDS: BENAZEPRIL 40 MG TABLET PO SCH (10:32)
[2017-11-29] MEDS: predniSONE 5 MG TABLET PO SCH (10:32)
[2017-11-29 13:07] LABS: Hematocrit 32.5 VOL% (42.0-52.0); Hemoglobin 11.3 GM/DL (14.0-18.0)
[2017-11-29] MEDS ORDERED: ALBUTEROL/IPRATROPIUM 3 ML NEB RESP TX PRN (13:38)
[2017-11-29] MEDS: FUROSEMIDE 40 MG/4 ML VIAL IV SCH (16:54)
[2017-11-29 19:30] LABS: Hematocrit 32.3 VOL% (42.0-52.0)
[2017-11-29] MEDS: MORPHINE 4 MG/1 ML VIAL IV PRN (19:54)
[2017-11-29] MEDS: LEVOFLOXACIN INJ 750 MG in PREMIX 1 EACH IV SCH (20:18)
[2017-11-29] MEDS: ACETAMINOPHEN 325 MG TABLET PO PRN (23:24)
[2017-11-30] MEDS: LEVALBUTEROL 1.25 MG/3 ML NEB RESP TX SCH ×4 (00:15→19:06)
[2017-11-30] MEDS: FUROSEMIDE 40 MG/4 ML VIAL IV SCH ×2 (00:25→10:17)
[2017-11-30] MEDS ORDERED: SODIUM CHLORIDE 0.9% 250 ML IV ONE (01:40)
[2017-11-30 02:24] LABS: Basophils % 0.2 % (0.0-0.8); Hematocrit 26.7 VOL% (42.0-52.0); Immature Granulocytes % 0.5 %; Immature Granulocytes Absolute 0.04 #; Lymphocytes # 0.6 10*3/uL (1.4-4.0); Lymphocytes % 6.6 % (21.2-54.2); Mean Corpuscular HGB Conc 33.7 GM/DL (32-36); Mean Corpuscular Hemoglobin 32 PG (27-34); Mean Corpuscular Volume 93.4 FL (87-102); Mean Platelet Volume 13.1 FL (9.6-12.0); Monocytes # 1.3 10*3/uL (0.11-0.8); Monocytes % 15.3 % (1.7-12.7); Neutrophils # 6.8 10*3/uL (1.4-7.4); Neutrophils % 77.4 % (38.7-73.9); Platelet Count 44 T/CUMM (130-400); Red Blood Count 2.86 MC/CUMM (3.8-5.5); Red Cell Distribution Width 19.6 % (9.3-17.3); White Blood Count 8.8 T/CUMM (4-12)
[2017-11-30 02:34] LABS: Calcium 7.7 MG/DL (8.5-10.1); Osmolality,Calculated 276.1 MOS/KG (273-304); Potassium 3.1 MMOL/L (3.5-5.1)
[2017-11-30 02:51] LABS: Anisocytosis 1+; Band Neutrophils 40 % (0-10); Lymphocytes 6 % (20-55); Poikilocytosis 1+; Polychromasia Slight; Segmented Neutrophils 46 % (50-85); Total Cells Counted 100
[2017-11-30 02:55] LABS: Tear Drop Cells 1+
[2017-11-30 02:56] LABS: Ovalocytes 1+
[2017-11-30] MEDS: PIPERACILLIN/TAZOBACTAM 3,375 MG in SODIUM CHLORIDE 0.9% 100 ML IV SCH ×3 (06:10→21:56)
[2017-11-30] MEDS ORDERED: SODIUM CHLORIDE 0.9% 1,000 ML IV PRN (06:27)
[2017-11-30] MEDS: OCTREOTIDE 500 MCG in SODIUM CHLORIDE 0.9% 100 ML IV SCH ×4 (07:07→19:38)
[2017-11-30] MEDS: POTASSIUM CHLORIDE RIDER 10 MEQ in PREMIX 1 EACH IV SCH ×4 (07:34→12:54)
[2017-11-30] MEDS: PANTOPRAZOLE 40 MG VIAL IV SCH ×2 (08:37→20:19)
[2017-11-30] MEDS: BENAZEPRIL 40 MG TABLET PO SCH (10:18)
[2017-11-30] MEDS: HYDROXYCHLOROQUINE 200 MG TABLET PO SCH ×2 (10:48→20:18)
[2017-11-30] MEDS: predniSONE 5 MG TABLET PO SCH (10:48)
[2017-11-30] MEDS: MULTIVITAMIN (CENTRUM) TABLET PO SCH (10:48)
[2017-11-30] MEDS: POTASSIUM CHLORIDE 20 MEQ/15 ML UDCUP PO SCH ×2 (10:48→20:18)
[2017-11-30] MEDS ORDERED: POTASSIUM CHLORIDE RIDER 100 ML IV ONE (12:49)
[2017-11-30 14:11] LABS: Double Stranded DNA Antibodies < 25.0 IU/ML
[2017-11-30 14:15] LABS: Anti SS-A Antibodies < 16 EU/ML; Anti SS-B Antibodies < 16 EU/ML
[2017-12-01] MEDS: OCTREOTIDE 500 MCG in SODIUM CHLORIDE 0.9% 100 ML IV SCH ×2 (00:16→05:38)
[2017-12-01] MEDS: LEVALBUTEROL 1.25 MG/3 ML NEB RESP TX SCH ×4 (00:24→19:58)
[2017-12-01] MEDS: PIPERACILLIN/TAZOBACTAM 3,375 MG in SODIUM CHLORIDE 0.9% 100 ML IV SCH ×3 (05:13→22:03)
[2017-12-01 05:18] LABS: Eosinophils # 0.1 10*3/uL (0.0-0.87); Eosinophils % 2.6 % (0.00-10.9); Hematocrit 26.3 VOL% (42.0-52.0); Hemoglobin 8.5 GM/DL (14.0-18.0); Immature Granulocytes % 0.8 %; Immature Granulocytes Absolute 0.03 #; Lymphocytes # 0.9 10*3/uL (1.4-4.0); Lymphocytes % 22.4 % (21.2-54.2); Mean Corpuscular HGB Conc 32.3 GM/DL (32-36); Mean Corpuscular Hemoglobin 31 PG (27-34); Mean Corpuscular Volume 94.9 FL (87-102); Mean Platelet Volume 12.6 FL (9.6-12.0); Monocytes # 0.8 10*3/uL (0.11-0.8); Monocytes % 19.5 % (1.7-12.7); Neutrophils # 2.1 10*3/uL (1.4-7.4); Neutrophils % 53.7 % (38.7-73.9); Red Blood Count 2.77 MC/CUMM (3.8-5.5); Red Cell Distribution Width 18.9 % (9.3-17.3); White Blood Count 3.9 T/CUMM (4-12)
[2017-12-01 05:29] LABS: Platelet Count 35 T/CUMM (130-400)
[2017-12-01 05:30] LABS: INR 1.4; PT Patient Result 14.2 SECS
[2017-12-01 05:51] LABS: Eosinophils 2 % (0-10); Lymphocytes 25 % (20-55); Platelet Estimate Decreased; Segmented Neutrophils 60 % (50-85); Total Cells Counted 100
[2017-12-01 05:52] LABS: Hypochromasia 1+; Microcytosis 1+; Tear Drop Cells Few
[2017-12-01 05:53] LABS: Target Cells Slight
[2017-12-01 06:02] LABS: Calcium 8.2 MG/DL (8.5-10.1); Osmolality,Calculated 280.5 MOS/KG (273-304); Potassium 3.7 MMOL/L (3.5-5.1)
[2017-12-01] MEDS ORDERED: SODIUM CHLORIDE 0.9% 1,000 ML IV PRN ×2 (06:46→10:27)
[2017-12-01] MEDS: BENAZEPRIL 40 MG TABLET PO SCH (09:13)
[2017-12-01] MEDS: PROPRANOLOL LA 80 MG CAPSULE PO SCH (09:13)
[2017-12-01] MEDS: PANTOPRAZOLE 40 MG TABLET PO SCH (09:14)
[2017-12-01] MEDS: HYDROXYCHLOROQUINE 200 MG TABLET PO SCH ×2 (09:14→20:45)
[2017-12-01] MEDS: POTASSIUM CHLORIDE 20 MEQ/15 ML UDCUP PO SCH ×2 (09:14→20:45)
[2017-12-01] MEDS: predniSONE 5 MG TABLET PO SCH (09:14)
[2017-12-01] MEDS ORDERED: LEVOFLOXACIN INJ 750 MG in PREMIX 1 EACH IV SCH (20:00)
[2017-12-01 20:19] LABS: Hematocrit 28.6 VOL% (42.0-52.0); Hemoglobin 9.1 GM/DL (14.0-18.0)
[2017-12-02] MEDS: LEVALBUTEROL 1.25 MG/3 ML NEB RESP TX SCH ×3 (00:32→13:56)
[2017-12-02] MEDS: PIPERACILLIN/TAZOBACTAM 3,375 MG in SODIUM CHLORIDE 0.9% 100 ML IV SCH ×2 (05:59→14:27)
[2017-12-02 06:00] LABS: INR 1.2; PT Patient Result 12.4 SECS
[2017-12-02 06:02] LABS: Basophils # 0.1 10*3/uL (0.0-0.2); Basophils % 1.5 % (0.0-0.8); Eosinophils # 0.2 10*3/uL (0.0-0.87); Eosinophils % 3.5 % (0.00-10.9); Hematocrit 31.3 VOL% (42.0-52.0); Hemoglobin 10.1 GM/DL (14.0-18.0); Immature Granulocytes % 0.7 %; Immature Granulocytes Absolute 0.03 #; Lymphocytes # 1.5 10*3/uL (1.4-4.0); Lymphocytes % 32.8 % (21.2-54.2); Mean Corpuscular HGB Conc 32.3 GM/DL (32-36); Mean Corpuscular Hemoglobin 31 PG (27-34); Mean Corpuscular Volume 97.2 FL (87-102); Mean Platelet Volume 12.4 FL (9.6-12.0); Monocytes # 0.6 10*3/uL (0.11-0.8); Monocytes % 12.4 % (1.7-12.7); Neutrophils # 2.3 10*3/uL (1.4-7.4); Neutrophils % 49.1 % (38.7-73.9); Red Blood Count 3.22 MC/CUMM (3.8-5.5); Red Cell Distribution Width 19.1 % (9.3-17.3); White Blood Count 4.6 T/CUMM (4-12)
[2017-12-02 06:10] LABS: Platelet Count 72 T/CUMM (130-400)
[2017-12-02 06:21] LABS: Calcium 8.9 MG/DL (8.5-10.1); Osmolality,Calculated 279.3 MOS/KG (273-304); Potassium 4.4 MMOL/L (3.5-5.1)
[2017-12-02 06:23] LABS: Band Neutrophils 21 % (0-10); Eosinophils 8 % (0-10); Lymphocytes 38 % (20-55); Segmented Neutrophils 25 % (50-85); Total Cells Counted 100
[2017-12-02 06:24] LABS: Anisocytosis 2+; Poikilocytosis 1+
[2017-12-02] MEDS: HYDROXYCHLOROQUINE 200 MG TABLET PO SCH (09:11)
[2017-12-02] MEDS: MULTIVITAMIN (CENTRUM) TABLET PO SCH (09:11)
[2017-12-02] MEDS: BENAZEPRIL 40 MG TABLET PO SCH (09:11)
[2017-12-02] MEDS: predniSONE 5 MG TABLET PO SCH (09:12)
[2017-12-02] MEDS: PANTOPRAZOLE 40 MG TABLET PO SCH (09:12)
[2017-12-02] MEDS: PROPRANOLOL LA 80 MG CAPSULE PO SCH (09:12)
[2017-12-02 14:09] VITALS: BP 104/64
== END 2017-12-02 14:29 | disposition home or self-care (01) | DRG 871 ==
LOC: N.ED 06:38 → N.EDINP 09:24 → SUATTDRO 09:24 → N.TELES 10:00 → N.ICU 17:29 → N.4E 12-01 22:58
PROVIDERS: ATTEND Internal Medicine

== ENCOUNTER 2018-08-14 15:22 | Inpatient (IN) ==
[2018-08-14] MEDS ORDERED: ONDANSETRON 4 MG/2 ML VIAL IV STA (15:47)
[2018-08-14] MEDS ORDERED: PANTOPRAZOLE INJ 80 MG in SODIUM CHLORIDE 0.9% 100 ML IV STA (15:47)
[2018-08-14] MEDS ORDERED: SODIUM CHLORIDE 0.9% 2,000 ML IV STA (15:47)
[2018-08-14 15:57] LABS: Basophils % 0.2 % (0.0-0.8); Eosinophils # 0.2 10*3/uL (0.0-0.87); Eosinophils % 1.6 % (0.00-10.9); Immature Granulocytes % 0.8 %; Immature Granulocytes Absolute 0.09 #; Lymphocytes # 1.7 10*3/uL (1.4-4.0); Lymphocytes % 14.8 % (21.2-54.2); Mean Corpuscular HGB Conc 31.8 GM/DL (32-36); Mean Corpuscular Hemoglobin 36 PG (27-34); Mean Corpuscular Volume 112.9 FL (87-102); Mean Platelet Volume 11.1 FL (9.6-12.0); Monocytes # 0.7 10*3/uL (0.11-0.8); Monocytes % 6.4 % (1.7-12.7); Neutrophils # 8.6 10*3/uL (1.4-7.4); Neutrophils % 76.2 % (38.7-73.9); Platelet Count 130 T/CUMM (130-400); Red Blood Count 1.39 MC/CUMM (3.8-5.5); Red Cell Distribution Width 16.5 % (9.3-17.3); White Blood Count 11.3 T/CUMM (4-12)
[2018-08-14] MEDS ORDERED: SODIUM CHLORIDE 0.9% 1,000 ML IV PRN ×3 (16:01→19:22)
[2018-08-14 16:02] LABS: Hematocrit 15.7 VOL% (42.0-52.0)
[2018-08-14] MEDS ORDERED: PANTOPRAZOLE 40 MG VIAL IV ONE (16:02)
[2018-08-14 16:14] LABS: INR 2.3
[2018-08-14 16:17] LABS: PT Patient Result 24.8 SECS
[2018-08-14 16:20] LABS: Albumin 2.6 G/DL (3.4-5.0); Bilirubin,Total 0.7 MG/DL (0.2-1.0); Calcium 8.3 MG/DL (8.5-10.1); Osmolality,Calculated 297.3 MOS/KG (273-304); Potassium 4.1 MMOL/L (3.5-5.1); Total Protein 5.6 G/DL (6.4-8.3)
[2018-08-14] MEDS ORDERED: PROTHROMBIN COMPLEX CONC 1,500 UNIT in IV BAG 1 EACH IV ONE (16:22)
[2018-08-14] MEDS ORDERED: ONDANSETRON 4 MG/2 ML VIAL IV PRN (16:51)
[2018-08-14] MEDS ORDERED: HYDROCORTISONE 100 MG VIAL IV STA (16:56)
[2018-08-14] MEDS ORDERED: PANTOPRAZOLE INJ 200 MG in SODIUM CHLORIDE 0.9% 250 ML IV SCH (17:00)
[2018-08-14 17:08] LABS: Hypochromasia 1+; Macrocytosis 1+; Platelet Estimate Adequate
[2018-08-14] MEDS ORDERED: GLUCAGON 1 MG VIAL IM PRN (17:09)
[2018-08-14] MEDS ORDERED: DEXTROSE 50% 25 GM/50 ML VIAL IV PRN (17:09)
[2018-08-14] MEDS: PANTOPRAZOLE INJ 200 MG in SODIUM CHLORIDE 0.9% 250 ML IV SCH (17:45)
[2018-08-14] MEDS: OCTREOTIDE 500 MCG in SODIUM CHLORIDE 0.9% 100 ML IV SCH (18:04)
[2018-08-14] MEDS ORDERED: PROPOFOL 200 MG/20 ML VIAL IV ONE (19:55)
[2018-08-14] MEDS ORDERED: PHENYLEPHRINE 1 MG/10 ML SYRINGE IV ONE (19:56)
[2018-08-14] MEDS ORDERED: SODIUM CHLORIDE 0.9% 250 ML IV ONE (19:56)
[2018-08-14] MEDS ORDERED: VECURONIUM 10 MG VIAL IV ONE (19:56)
[2018-08-14] MEDS ORDERED: HYDROCORTISONE 100 MG VIAL ONE (19:56)
[2018-08-14] MEDS ORDERED: MIDAZOLAM 2 MG/2 ML VIAL ONE (19:56)
[2018-08-14] MEDS ORDERED: SUCCINYLCHOLINE 200 MG/10 ML VIAL ONE (19:56)
[2018-08-14 20:27] LABS: Apearance,Urine CLEAR (Clear); Bilirubin,Urine Negative (Negative); Blood, Urine Negative (Negative); Glucose,Urine (UA) Negative (Negative); Hyaline Casts,Urine 3 /LPF (0-3); Ketones,Urine Negative (Negative); Nitrite,Urine Negative (Negative); Protein,Urine Negative; RBC,Urine <1 /HPF (0-4); Squamous Epithelial Cell,Urine Occasional /HPF (0-10); Urine Color Yellow (Yellow); Urine Specific Gravity 1.015 (1.001-1.035); Urine Urobilinogen < 2.0 EU/DL (0.2-1.0); WBC,Urine 1 /HPF (0-6)
[2018-08-14] MEDS: PROPOFOL 1,000 MG/100 ML BOTTLE IV SCH (20:38)
[2018-08-14 20:50] LABS: Allen Test Positive; Pt O2 Delivery Device Ventilator
[2018-08-14 20:51] LABS: ABG HCO3 22.7 MMOL/L (20-26); ABG Oxygen Saturation 98.1 % (95-100); ABG PH 7.378 (7.35-7.45); ABG TCO2 21.9 MMOL/L (23-27)
[2018-08-14] MEDS: SODIUM CHLORIDE 0.9% 1,000 ML IV SCH (21:25)
[2018-08-14] MEDS: CLINDAMYCIN INJ 600 MG in PREMIX 1 EACH IV SCH (21:25)
[2018-08-14] MEDS: HYDROCORTISONE 100 MG VIAL IV SCH (23:52)
[2018-08-14] MEDS: INSULIN REGULAR 100 UNIT/ML SUBCUT SCH (23:52)
[2018-08-15 02:42] LABS: Hematocrit 24.6 VOL% (42.0-52.0); Hemoglobin 8.6 GM/DL (14.0-18.0)
[2018-08-15] MEDS: SODIUM CHLORIDE 0.9% 1,000 ML IV SCH ×6 (03:15→22:01)
[2018-08-15] MEDS: PROPOFOL 1,000 MG/100 ML BOTTLE IV SCH ×6 (03:15→19:47)
[2018-08-15] MEDS: CIPROFLOXACIN INJ 400 MG in PREMIX 1 EACH IV SCH ×2 (03:16→14:24)
[2018-08-15 04:03] LABS: ABG Base Excess -2.8 MMOL/L (-2.5-2.5); ABG HCO3 21.9 MMOL/L (20-26); ABG Oxygen Saturation 86.1 % (95-100); ABG PCO2 36.9 MM HG (35-48); ABG PH 7.382 (7.35-7.45); ABG PO2 50.1 MM HG (80-95); ABG TCO2 20.3 MMOL/L (23-27); Pt O2 Delivery Device Ventilator
[2018-08-15] MEDS: OCTREOTIDE 500 MCG in SODIUM CHLORIDE 0.9% 100 ML IV SCH ×2 (04:22→14:24)
[2018-08-15 05:34] LABS: Basophils % 0.1 % (0.0-0.8); Hematocrit 24.4 VOL% (42.0-52.0); Hemoglobin 8.4 GM/DL (14.0-18.0); Immature Granulocytes % 0.9 %; Immature Granulocytes Absolute 0.11 #; Lymphocytes # 0.5 10*3/uL (1.4-4.0); Lymphocytes % 4.3 % (21.2-54.2); Mean Corpuscular HGB Conc 34.4 GM/DL (32-36); Mean Corpuscular Hemoglobin 33 PG (27-34); Mean Corpuscular Volume 96.4 FL (87-102); Mean Platelet Volume 11.9 FL (9.6-12.0); Monocytes # 1.1 10*3/uL (0.11-0.8); Monocytes % 9.6 % (1.7-12.7); Neutrophils # 10.1 10*3/uL (1.4-7.4); Neutrophils % 85.1 % (38.7-73.9); Red Blood Count 2.53 MC/CUMM (3.8-5.5); Red Cell Distribution Width 18.2 % (9.3-17.3); White Blood Count 11.8 T/CUMM (4-12)
[2018-08-15 05:44] LABS: Calcium 7.7 MG/DL (8.5-10.1); Potassium 4.2 MMOL/L (3.5-5.1)
[2018-08-15] MEDS: CLINDAMYCIN INJ 600 MG in PREMIX 1 EACH IV SCH ×3 (05:48→20:40)
[2018-08-15 05:50] LABS: Platelet Count 42 T/CUMM (130-400)
[2018-08-15 06:01] LABS: Band Neutrophils 1 % (0-10); Hypochromasia 1+; Lymphocytes 2 % (20-55); Ovalocytes Slight; Platelet Estimate Decreased; Segmented Neutrophils 91 % (50-85); Total Cells Counted 100
[2018-08-15 06:52] LABS: INR 1.5; PT Patient Result 16.7 SECS
[2018-08-15] MEDS: HYDROCORTISONE 100 MG VIAL IV SCH ×2 (07:10→15:19)
[2018-08-15] MEDS: INSULIN REGULAR 100 UNIT/ML SUBCUT SCH ×3 (07:10→18:07)
[2018-08-15] MEDS ORDERED: CALCIUM GLUCONATE 1,000 MG in SODIUM CHLORIDE 0.9% 100 ML IV ONE (10:30)
[2018-08-15 10:57] LABS: Hematocrit 24.1 VOL% (42.0-52.0); Hemoglobin 8.3 GM/DL (14.0-18.0)
[2018-08-15 13:45] LABS: ABG Base Excess -2.3 MMOL/L (-2.5-2.5); ABG HCO3 22.5 MMOL/L (20-26); ABG PCO2 32.3 MM HG (35-48); ABG PH 7.429 (7.35-7.45); ABG TCO2 19.9 MMOL/L (23-27); Pt O2 Delivery Device Ventilator
[2018-08-15 17:49] LABS: Hematocrit 23.7 VOL% (42.0-52.0); Hemoglobin 8.1 GM/DL (14.0-18.0)
[2018-08-15] MEDS: PANTOPRAZOLE INJ 200 MG in SODIUM CHLORIDE 0.9% 250 ML IV SCH ×2 (17:54→18:57)
[2018-08-15 22:44] LABS: Hematocrit 22.8 VOL% (42.0-52.0); Hemoglobin 7.8 GM/DL (14.0-18.0)
[2018-08-16] MEDS: PROPOFOL 1,000 MG/100 ML BOTTLE IV SCH ×7 (00:47→21:32)
[2018-08-16] MEDS: OCTREOTIDE 500 MCG in SODIUM CHLORIDE 0.9% 100 ML IV SCH ×5 (00:58→22:07)
[2018-08-16] MEDS: HYDROCORTISONE 100 MG VIAL IV SCH ×4 (00:59→23:57)
[2018-08-16] MEDS: INSULIN REGULAR 100 UNIT/ML SUBCUT SCH ×5 (01:01→23:49)
[2018-08-16] MEDS: CIPROFLOXACIN INJ 400 MG in PREMIX 1 EACH IV SCH ×2 (02:39→15:22)
[2018-08-16 04:38] LABS: Allen Test Positive; Pt O2 Delivery Device Ventilator
[2018-08-16 04:39] LABS: Basophils % 0.5 % (0.0-0.8); Eosinophils # 0.1 10*3/uL (0.0-0.87); Eosinophils % 1.5 % (0.00-10.9); Hematocrit 22.8 VOL% (42.0-52.0); Hemoglobin 7.6 GM/DL (14.0-18.0); Immature Granulocytes % 0.5 %; Immature Granulocytes Absolute 0.02 #; Lymphocytes # 0.7 10*3/uL (1.4-4.0); Lymphocytes % 16.1 % (21.2-54.2); Mean Corpuscular HGB Conc 33.3 GM/DL (32-36); Mean Corpuscular Hemoglobin 33 PG (27-34); Mean Corpuscular Volume 98.3 FL (87-102); Mean Platelet Volume 11.1 FL (9.6-12.0); Monocytes # 0.4 10*3/uL (0.11-0.8); Monocytes % 8.7 % (1.7-12.7); Neutrophils # 2.9 10*3/uL (1.4-7.4); Neutrophils % 72.7 % (38.7-73.9); Red Blood Count 2.32 MC/CUMM (3.8-5.5); Red Cell Distribution Width 19.2 % (9.3-17.3)
[2018-08-16 04:41] LABS: ABG Base Excess -3.3 MMOL/L (-2.5-2.5); ABG HCO3 21.6 MMOL/L (20-26); ABG Oxygen Saturation 99.9 % (95-100); ABG PCO2 36.2 MM HG (35-48); ABG PH 7.379 (7.35-7.45); ABG TCO2 19.9 MMOL/L (23-27)
[2018-08-16 04:43] LABS: Platelet Count 29 T/CUMM (130-400)
[2018-08-16] MEDS ORDERED: SODIUM CHLORIDE 0.9% 1,000 ML IV PRN ×5 (04:50→18:11)
[2018-08-16 04:51] LABS: INR 1.9
[2018-08-16 05:10] LABS: Band Neutrophils 1 % (0-10); Eosinophils 2 % (0-10); Lymphocytes 15 % (20-55); Platelet Estimate Decreased; Segmented Neutrophils 77 % (50-85); Total Cells Counted 100
[2018-08-16] MEDS: CLINDAMYCIN INJ 600 MG in PREMIX 1 EACH IV SCH ×3 (05:10→22:03)
[2018-08-16 05:11] LABS: Hypochromasia 1+; Microcytosis Slight; Ovalocytes Slight
[2018-08-16] MEDS ORDERED: PHYTONADIONE INJ 2.5 MG in SODIUM CHLORIDE 0.9% 25 ML IV ONE (07:30)
[2018-08-16] MEDS: SODIUM CHLORIDE 0.9% 1,000 ML IV SCH ×2 (10:23→16:00)
[2018-08-16] MEDS ORDERED: CALCIUM GLUCONATE 1,000 MG in SODIUM CHLORIDE 0.9% 100 ML IV ONE (11:00)
[2018-08-16] MEDS: PANTOPRAZOLE INJ 200 MG in SODIUM CHLORIDE 0.9% 250 ML IV SCH ×2 (16:46→20:31)
[2018-08-16 22:49] LABS: Hematocrit 26.6 VOL% (42.0-52.0)
[2018-08-17] MEDS: PROPOFOL 1,000 MG/100 ML BOTTLE IV SCH ×2 (02:03→06:10)
[2018-08-17] MEDS: CIPROFLOXACIN INJ 400 MG in PREMIX 1 EACH IV SCH ×2 (02:11→15:38)
[2018-08-17 03:03] LABS: ABG Base Excess -3.9 MMOL/L (-2.5-2.5); ABG HCO3 21.2 MMOL/L (20-26); ABG Oxygen Saturation 98.9 % (95-100); ABG PCO2 38.1 MM HG (35-48); ABG PH 7.354 (7.35-7.45); ABG TCO2 19.4 MMOL/L (23-27); Allen Test Positive; Pt O2 Delivery Device Ventilator
[2018-08-17] MEDS: SODIUM CHLORIDE 0.9% 1,000 ML IV SCH ×3 (03:31→12:31)
[2018-08-17 04:51] LABS: Basophils % 0.9 % (0.0-0.8); Eosinophils # 0.1 10*3/uL (0.0-0.87); Eosinophils % 1.5 % (0.00-10.9); Hematocrit 28.5 VOL% (42.0-52.0); Hemoglobin 9.4 GM/DL (14.0-18.0); Immature Granulocytes % 1.8 %; Immature Granulocytes Absolute 0.06 #; Lymphocytes # 0.5 10*3/uL (1.4-4.0); Lymphocytes % 16.2 % (21.2-54.2); Mean Corpuscular Hemoglobin 32 PG (27-34); Mean Corpuscular Volume 97.9 FL (87-102); Monocytes # 0.3 10*3/uL (0.11-0.8); Monocytes % 7.8 % (1.7-12.7); Neutrophils # 2.4 10*3/uL (1.4-7.4); Neutrophils % 71.8 % (38.7-73.9); Red Blood Count 2.91 MC/CUMM (3.8-5.5); Red Cell Distribution Width 18.2 % (9.3-17.3); White Blood Count 3.3 T/CUMM (4-12)
[2018-08-17 04:54] LABS: INR 1.4
[2018-08-17 05:00] LABS: Platelet Count 37 T/CUMM (130-400)
[2018-08-17] MEDS: CLINDAMYCIN INJ 600 MG in PREMIX 1 EACH IV SCH ×3 (05:09→22:44)
[2018-08-17] MEDS: OCTREOTIDE 500 MCG in SODIUM CHLORIDE 0.9% 100 ML IV SCH ×4 (05:10→22:47)
[2018-08-17] MEDS: INSULIN REGULAR 100 UNIT/ML SUBCUT SCH ×4 (05:11→20:25)
[2018-08-17 05:12] LABS: Albumin 2.7 G/DL (3.4-5.0); Bilirubin,Total 1.2 MG/DL (0.2-1.0); Calcium 7.9 MG/DL (8.5-10.1); Osmolality,Calculated 289.8 MOS/KG (273-304); Total Protein 6.4 G/DL (6.4-8.3)
[2018-08-17] MEDS: HYDROCORTISONE 100 MG VIAL IV SCH ×3 (06:13→22:43)
[2018-08-17 12:36] LABS: Hematocrit 33.7 VOL% (42.0-52.0); Hemoglobin 11.3 GM/DL (14.0-18.0)
[2018-08-17] MEDS: PANTOPRAZOLE INJ 200 MG in SODIUM CHLORIDE 0.9% 250 ML IV SCH ×2 (16:17→21:31)
[2018-08-17] MEDS: SODIUM CHLORIDE 0.45% 1,000 ML IV SCH (18:40)
[2018-08-18] MEDS: OCTREOTIDE 500 MCG in SODIUM CHLORIDE 0.9% 100 ML IV SCH ×3 (02:16→22:05)
[2018-08-18] MEDS: CIPROFLOXACIN INJ 400 MG in PREMIX 1 EACH IV SCH ×2 (02:31→14:28)
[2018-08-18] MEDS: SODIUM CHLORIDE 0.45% 1,000 ML IV SCH ×3 (03:20→22:22)
[2018-08-18 05:28] LABS: Hematocrit 31.8 VOL% (42.0-52.0); Hemoglobin 10.4 GM/DL (14.0-18.0)
[2018-08-18 05:36] LABS: INR 1.3; PT Patient Result 14.3 SECS
[2018-08-18] MEDS: CLINDAMYCIN INJ 600 MG in PREMIX 1 EACH IV SCH ×3 (06:30→22:14)
[2018-08-18] MEDS: HYDROCORTISONE 100 MG VIAL IV SCH ×2 (06:32→15:13)
[2018-08-18 06:49] LABS: Basophils % 0.5 % (0.0-0.8); Eosinophils % 0.7 % (0.00-10.9); Hematocrit 32.2 VOL% (42.0-52.0); Hemoglobin 10.5 GM/DL (14.0-18.0); Immature Granulocytes % 1.2 %; Immature Granulocytes Absolute 0.07 #; Lymphocytes # 0.8 10*3/uL (1.4-4.0); Lymphocytes % 13.6 % (21.2-54.2); Mean Corpuscular HGB Conc 32.6 GM/DL (32-36); Mean Corpuscular Hemoglobin 33 PG (27-34); Mean Corpuscular Volume 100.9 FL (87-102); Mean Platelet Volume 11.9 FL (9.6-12.0); Monocytes # 0.5 10*3/uL (0.11-0.8); Monocytes % 9.1 % (1.7-12.7); Neutrophils # 4.4 10*3/uL (1.4-7.4); Neutrophils % 74.9 % (38.7-73.9); Red Blood Count 3.19 MC/CUMM (3.8-5.5); Red Cell Distribution Width 17.7 % (9.3-17.3); White Blood Count 5.8 T/CUMM (4-12)
[2018-08-18 06:55] LABS: Platelet Count 33 T/CUMM (130-400)
[2018-08-18 07:12] LABS: Macrocytosis 1+
[2018-08-18 07:13] LABS: Platelet Estimate Decreased
[2018-08-18] MEDS: INSULIN REGULAR 100 UNIT/ML SUBCUT SCH ×4 (07:58→21:59)
[2018-08-18 11:49] LABS: Hematocrit 31.7 VOL% (42.0-52.0); Hemoglobin 10.7 GM/DL (14.0-18.0)
[2018-08-18] MEDS: PANTOPRAZOLE INJ 200 MG in SODIUM CHLORIDE 0.9% 250 ML IV SCH (18:40)
[2018-08-18 20:33] LABS: Hematocrit 32.3 VOL% (42.0-52.0); Hemoglobin 10.8 GM/DL (14.0-18.0)
[2018-08-19] MEDS: HYDROCORTISONE 100 MG VIAL IV SCH ×3 (00:24→15:19)
[2018-08-19] MEDS: CIPROFLOXACIN INJ 400 MG in PREMIX 1 EACH IV SCH ×2 (03:02→15:23)
[2018-08-19] MEDS: CLINDAMYCIN INJ 600 MG in PREMIX 1 EACH IV SCH ×2 (04:43→14:12)
[2018-08-19 05:12] LABS: Hematocrit 32.6 VOL% (42.0-52.0); Hemoglobin 10.7 GM/DL (14.0-18.0)
[2018-08-19] MEDS: INSULIN REGULAR 100 UNIT/ML SUBCUT SCH ×4 (09:32→23:21)
[2018-08-19] MEDS: OCTREOTIDE 500 MCG in SODIUM CHLORIDE 0.9% 100 ML IV SCH (11:38)
[2018-08-19 12:19] LABS: Hematocrit 31.5 VOL% (42.0-52.0); Hemoglobin 10.6 GM/DL (14.0-18.0)
[2018-08-19] MEDS: SODIUM CHLORIDE 0.45% 1,000 ML IV SCH (14:11)
[2018-08-19] MEDS: PANTOPRAZOLE INJ 200 MG in SODIUM CHLORIDE 0.9% 250 ML IV SCH (20:00)
[2018-08-20] MEDS: OCTREOTIDE 500 MCG in SODIUM CHLORIDE 0.9% 100 ML IV SCH ×4 (00:49→23:15)
[2018-08-20] MEDS: HYDROCORTISONE 100 MG VIAL IV SCH ×4 (00:53→22:04)
[2018-08-20] MEDS: CLINDAMYCIN INJ 600 MG in PREMIX 1 EACH IV SCH ×4 (00:59→21:52)
[2018-08-20] MEDS: CIPROFLOXACIN INJ 400 MG in PREMIX 1 EACH IV SCH ×2 (02:59→14:48)
[2018-08-20] MEDS: ALBUTEROL/IPRATROPIUM 3 ML NEB RESP TX SCH ×5 (03:20→21:04)
[2018-08-20] MEDS: SODIUM CHLORIDE 0.45% 1,000 ML IV SCH ×2 (06:13→23:15)
[2018-08-20 11:09] LABS: Basophils % 0.4 % (0.0-0.8); Eosinophils % 0.2 % (0.00-10.9); Hematocrit 31.1 VOL% (42.0-52.0); Hemoglobin 10.5 GM/DL (14.0-18.0); Immature Granulocytes % 1.7 %; Immature Granulocytes Absolute 0.08 #; Lymphocytes # 0.4 10*3/uL (1.4-4.0); Lymphocytes % 7.7 % (21.2-54.2); Mean Corpuscular HGB Conc 33.8 GM/DL (32-36); Mean Corpuscular Hemoglobin 33 PG (27-34); Mean Corpuscular Volume 97.5 FL (87-102); Monocytes # 0.3 10*3/uL (0.11-0.8); Monocytes % 5.8 % (1.7-12.7); Neutrophils # 3.9 10*3/uL (1.4-7.4); Neutrophils % 84.2 % (38.7-73.9); Red Blood Count 3.19 MC/CUMM (3.8-5.5); Red Cell Distribution Width 16.5 % (9.3-17.3); White Blood Count 4.7 T/CUMM (4-12)
[2018-08-20 11:13] LABS: Platelet Count 28 T/CUMM (130-400)
[2018-08-20 11:45] LABS: Hypochromasia 1+; Macrocytosis 1+
[2018-08-20 11:46] LABS: Anisocytosis 1+; Platelet Estimate Decreased; Polychromasia Slight
[2018-08-20] MEDS: INSULIN REGULAR 100 UNIT/ML SUBCUT SCH ×4 (12:21→21:55)
[2018-08-20] MEDS: PANTOPRAZOLE INJ 200 MG in SODIUM CHLORIDE 0.9% 250 ML IV SCH (23:16)
[2018-08-21] MEDS: ALBUTEROL/IPRATROPIUM 3 ML NEB RESP TX SCH ×6 (00:11→18:56)
[2018-08-21] MEDS: CIPROFLOXACIN INJ 400 MG in PREMIX 1 EACH IV SCH ×2 (01:55→14:25)
[2018-08-21 02:54] LABS: Basophils % 0.3 % (0.0-0.8); Eosinophils % 0.8 % (0.00-10.9); Hematocrit 28.4 VOL% (42.0-52.0); Hemoglobin 9.7 GM/DL (14.0-18.0); Immature Granulocytes % 1.4 %; Immature Granulocytes Absolute 0.05 #; Lymphocytes # 0.4 10*3/uL (1.4-4.0); Lymphocytes % 11.6 % (21.2-54.2); Mean Corpuscular HGB Conc 34.2 GM/DL (32-36); Mean Corpuscular Hemoglobin 33 PG (27-34); Mean Corpuscular Volume 97.6 FL (87-102); Mean Platelet Volume 12.3 FL (9.6-12.0); Monocytes # 0.3 10*3/uL (0.11-0.8); Monocytes % 8.8 % (1.7-12.7); Neutrophils # 2.8 10*3/uL (1.4-7.4); Neutrophils % 77.1 % (38.7-73.9); Red Blood Count 2.91 MC/CUMM (3.8-5.5); Red Cell Distribution Width 16.7 % (9.3-17.3); White Blood Count 3.6 T/CUMM (4-12)
[2018-08-21 02:55] LABS: Platelet Count 24 T/CUMM (130-400)
[2018-08-21 02:59] LABS: INR 1.3; PT Patient Result 14.2 SECS
[2018-08-21 03:16] LABS: Albumin 2.6 G/DL (3.4-5.0); Bilirubin,Direct 0.47 MG/DL (0.0-0.20); Bilirubin,Indirect 0.7 MG/DL (0.0-1.0); Bilirubin,Total 1.2 MG/DL (0.2-1.0); Total Protein 6.2 G/DL (6.4-8.3)
[2018-08-21 03:25] LABS: Platelet Estimate Decreased
[2018-08-21 03:26] LABS: Hypochromasia 1+; Ovalocytes 1+; Tear Drop Cells Few
[2018-08-21] MEDS: CLINDAMYCIN INJ 600 MG in PREMIX 1 EACH IV SCH ×3 (05:22→20:51)
[2018-08-21] MEDS: HYDROCORTISONE 100 MG VIAL IV SCH ×3 (06:12→23:28)
[2018-08-21] MEDS: INSULIN REGULAR 100 UNIT/ML SUBCUT SCH ×4 (10:00→21:40)
[2018-08-21] MEDS: OCTREOTIDE 500 MCG in SODIUM CHLORIDE 0.9% 100 ML IV SCH (11:49)
[2018-08-21] MEDS ORDERED: amLODIPine 5 MG TABLET PO SCH (13:00)
[2018-08-21] MEDS: PROPRANOLOL 20 MG TABLET PO SCH ×2 (14:21→20:47)
[2018-08-21] MEDS: SODIUM CHLORIDE 0.45% 1,000 ML IV SCH (17:04)
[2018-08-21] MEDS: PANTOPRAZOLE 40 MG VIAL IV SCH (20:47)
[2018-08-22] MEDS: ALBUTEROL/IPRATROPIUM 3 ML NEB RESP TX SCH ×7 (00:22→22:30)
[2018-08-22] MEDS: CIPROFLOXACIN INJ 400 MG in PREMIX 1 EACH IV SCH (02:19)
[2018-08-22] MEDS: OCTREOTIDE 500 MCG in SODIUM CHLORIDE 0.9% 100 ML IV SCH ×4 (02:21→20:49)
[2018-08-22] MEDS: CLINDAMYCIN INJ 600 MG in PREMIX 1 EACH IV SCH (05:16)
[2018-08-22 05:29] LABS: Basophils % 0.7 % (0.0-0.8); Eosinophils # 0.2 10*3/uL (0.0-0.87); Eosinophils % 3.5 % (0.00-10.9); Hematocrit 29.6 VOL% (42.0-52.0); Immature Granulocytes Absolute 0.11 #; Lymphocytes # 0.7 10*3/uL (1.4-4.0); Lymphocytes % 13.7 % (21.2-54.2); Mean Corpuscular HGB Conc 33.8 GM/DL (32-36); Mean Corpuscular Hemoglobin 33 PG (27-34); Mean Platelet Volume 13.2 FL (9.6-12.0); Monocytes # 0.5 10*3/uL (0.11-0.8); Monocytes % 9.1 % (1.7-12.7); Neutrophils # 3.8 10*3/uL (1.4-7.4); Red Blood Count 3.02 MC/CUMM (3.8-5.5); Red Cell Distribution Width 17.4 % (9.3-17.3); White Blood Count 5.4 T/CUMM (4-12)
[2018-08-22 05:35] LABS: INR 1.3; PT Patient Result 14.2 SECS
[2018-08-22 05:38] LABS: Platelet Count 29 T/CUMM (130-400)
[2018-08-22 06:11] LABS: Hypochromasia Slight; Ovalocytes Slight; Platelet Estimate Decreased
[2018-08-22] MEDS: HYDROCORTISONE 100 MG VIAL IV SCH ×3 (06:21→23:32)
[2018-08-22] MEDS: INSULIN REGULAR 100 UNIT/ML SUBCUT SCH ×4 (09:19→20:54)
[2018-08-22] MEDS: PANTOPRAZOLE 40 MG VIAL IV SCH ×2 (09:20→20:52)
[2018-08-22] MEDS: PROPRANOLOL 20 MG TABLET PO SCH ×3 (09:20→20:54)
[2018-08-22] MEDS: SODIUM CHLORIDE 0.45% 1,000 ML IV SCH ×4 (10:48→23:41)
[2018-08-23 02:45] LABS: Basophils # 0.1 10*3/uL (0.0-0.2); Eosinophils # 0.2 10*3/uL (0.0-0.87); Eosinophils % 3.3 % (0.00-10.9); Hematocrit 30.2 VOL% (42.0-52.0); Hemoglobin 10.1 GM/DL (14.0-18.0); Lymphocytes # 0.7 10*3/uL (1.4-4.0); Lymphocytes % 14.7 % (21.2-54.2); Mean Corpuscular HGB Conc 33.4 GM/DL (32-36); Mean Corpuscular Hemoglobin 33 PG (27-34); Mean Corpuscular Volume 98.4 FL (87-102); Mean Platelet Volume 12.1 FL (9.6-12.0); Monocytes # 0.5 10*3/uL (0.11-0.8); Monocytes % 10.8 % (1.7-12.7); Neutrophils # 3.3 10*3/uL (1.4-7.4); Neutrophils % 68.2 % (38.7-73.9); Red Blood Count 3.07 MC/CUMM (3.8-5.5); Red Cell Distribution Width 17.6 % (9.3-17.3); White Blood Count 4.9 T/CUMM (4-12)
[2018-08-23 03:05] LABS: Albumin 2.6 G/DL (3.4-5.0); Bilirubin,Total 1.7 MG/DL (0.2-1.0); Calcium 7.7 MG/DL (8.5-10.1); Osmolality,Calculated 278.4 MOS/KG (273-304); Potassium 3.7 MMOL/L (3.5-5.1); Total Protein 6.1 G/DL (6.4-8.3)
[2018-08-23] MEDS: ALBUTEROL/IPRATROPIUM 3 ML NEB RESP TX SCH ×5 (03:20→20:30)
[2018-08-23 03:26] LABS: Platelet Count 33 T/CUMM (130-400)
[2018-08-23] MEDS: OCTREOTIDE 500 MCG in SODIUM CHLORIDE 0.9% 100 ML IV SCH ×2 (06:29→16:42)
[2018-08-23] MEDS: INSULIN REGULAR 100 UNIT/ML SUBCUT SCH ×3 (07:42→16:38)
[2018-08-23] MEDS: PANTOPRAZOLE 40 MG VIAL IV SCH (09:24)
[2018-08-23] MEDS: HYDROCORTISONE 100 MG VIAL IV SCH ×2 (09:27→16:43)
[2018-08-23] MEDS ORDERED: PROPRANOLOL LA 80 MG CAPSULE PO SCH (09:30)
[2018-08-23] MEDS ORDERED: SPIRONOLACTONE 50 MG TABLET PO SCH (09:30)
[2018-08-23] MEDS: PROPRANOLOL 20 MG TABLET PO SCH (09:33)
[2018-08-23] MEDS ORDERED: FUROSEMIDE 40 MG/4 ML VIAL IV SCH (16:00)
[2018-08-23 16:15] VITALS: BP 156/91
== END 2018-08-23 19:50 | disposition hospice, home (50) | DRG 813 ==
LOC: N.ED 15:22 → SUATTDRO 16:51 → N.EDINP 16:51 → N.CC 17:26 → N.4E 08-18 15:55
PROVIDERS: ADMIT Internal Medicine; ATTEND Internal Medicine